=== PATIENT | female | born 1980 | race Caucasian/White ===

== ENCOUNTER 2016-04-24 07:44 | Inpatient (IN) | payer BC ==
[2016-04-24 08:52] LABS: Hematocrit 41 % (35-47); Mean Corpuscular HGB Conc 34 g/dl (31-36); Mean Corpuscular Hemoglobin 32 pg (27-31); Mean Corpuscular Volume 92 fL (80-97); Mean Platelet Volume 10 um3 (7.4-10.4); Red Blood Count 4.41 10^6/ul (4.0-5.4); Red Cell Distribution Width 13 % (10.5-15); White Blood Count 10.9 10^3/ul (3.5-10.8)
[2016-04-24] MEDS ORDERED: Oxytocin in LR* 20 UNITS/1,000 ML BAG IVPB SCH ×2 (09:00→18:00)
[2016-04-24] MEDS ORDERED: OBEPIDURAL* 250 ML ONE (13:38)
[2016-04-24] MEDS ORDERED: Phenylephrine IV* 40 MCG/ML 10 ML SYRINGE IV PUSH PRN ×2 (15:06)
[2016-04-24] MEDS ORDERED: Famotidine IV* 10 MG/ML 2 ML (20 mg) IV PRN (15:06)
[2016-04-24] MEDS ORDERED: Sodium Citrate/Citric Acid* 15 ML UDC PO PRN (15:06)
[2016-04-24] MEDS ORDERED: OBEPIDURAL* 250 ML EPIDURAL SCH (16:00)
[2016-04-24] MEDS ORDERED: Acetaminophen TAB* 325 MG PO PRN (17:28)
[2016-04-24] MEDS ORDERED: Glycerin ADULT SUPP PR PRN (17:28)
[2016-04-24] MEDS ORDERED: Witch Hazel PAD* JAR TOPICAL PRN (17:28)
[2016-04-24] MEDS ORDERED: Dibucaine 1% 28.35 GM TUBE PR PRN (17:28)
[2016-04-24] MEDS ORDERED: Simethicone TAB* 80 MG TAB.CHEW PO SCH (17:30)
[2016-04-24] MEDS: Ibuprofen TAB* 600 MG PO PRN (18:44)
[2016-04-24] MEDS: Docusate CAP* 100 MG PO SCH (22:25)
[2016-04-24] MEDS ORDERED: Phenylephrine IV* 40 MCG/ML 10 ML SYRINGE ONE (23:45)
[2016-04-25] MEDS: Ibuprofen TAB* 600 MG PO PRN ×4 (03:56→22:08)
[2016-04-25 07:38] LABS: Hematocrit 36 % (35-47); Hemoglobin 12.4 g/dl (12.0-16.0); Mean Corpuscular HGB Conc 34 g/dl (31-36); Mean Corpuscular Hemoglobin 32 pg (27-31); Mean Corpuscular Volume 93 fL (80-97); Mean Platelet Volume 10 um3 (7.4-10.4); Red Blood Count 3.89 10^6/ul (4.0-5.4); Red Cell Distribution Width 13 % (10.5-15); White Blood Count 10.9 10^3/ul (3.5-10.8)
[2016-04-25] MEDS ORDERED: Ferrous Gluconate TAB* 324 MG TAB PO SCH (09:00)
[2016-04-25] MEDS: Docusate CAP* 100 MG PO SCH ×3 (10:05→22:08)
[2016-04-26] MEDS: Ibuprofen TAB* 600 MG PO PRN ×2 (04:13→10:48)
[2016-04-26 07:42] VITALS: BP 114/65
[2016-04-26] MEDS: Docusate CAP* 100 MG PO SCH (08:46)
== END 2016-04-26 12:48 | disposition home or self-care (01) | DRG 560 ==
LOC: MCHOBOUT 07:44 → MCHOB 08:10
PROVIDERS: ADMIT Obstetrics & Gynecology; ATTEND Obstetrics & Gynecology
PROC: 10E0XZZ Delivery of Products of Conception, External Approach (ICD-10-PCS; principal; 2016-04-24)
PROC: 10907ZC Drainage of Amniotic Fluid, Therapeutic from Products of Conception, Via Natural or Artificial Opening (ICD-10-PCS; 2016-04-24)
DX: O80 Encounter for full-term uncomplicated delivery (principal); Z37.0 Single live birth; Z3A.39 39 weeks gestation of pregnancy
CPT/HCPCS: 36415; 85025; 86850; 86900; 86901; A9270-GY

== ENCOUNTER 2017-09-27 07:34 | Inpatient (IN) | payer OTHER ==
[2017-09-27] MEDS ORDERED: Oxytocin in LR* 20 UNITS/1,000 ML BAG IVPB SCH ×2 (08:00→17:00)
[2017-09-27] MEDS ORDERED: Buffered Lidocaine 0.9% SYRIN* 5 ML/SYR SYRINGE ONE (08:20)
[2017-09-27] MEDS ORDERED: Penicillin G Potassium IV* 5,000,000 UNITS in NS 0.9% 100 ML* 100 ML IVPB ONE (08:30)
[2017-09-27 09:00] LABS: ABS Basophils 0.1 10^3/ul (0-0.2); ABS Eosinophils 0.3 10^3/ul (0-0.6); ABS Lymphocytes 1.4 10^3/ul (1.0-4.8); ABS Monocytes 0.6 10^3/ul (0-0.8); ABS Neutrophils 8.2 10^3/ul (1.5-7.7); ABS Nucleated RBC 0 10^3/ul; Hematocrit 38 % (35-47); Hemoglobin 13.5 g/dl (12.0-16.0); Lymphocyte % 13.4 % (25-47); Mean Corpuscular HGB Conc 35 g/dl (31-36); Mean Corpuscular Hemoglobin 33 pg (27-31); Mean Corpuscular Volume 92 fL (80-97); Mean Platelet Volume 9.7 um3 (7.4-10.4); Nucleated Red Blood Cells % 0.2; Platelet Count 164 10^3/ul (150-450); Red Blood Count 4.15 10^6/ul (4.00-5.40); Red Cell Distribution Width 13 % (10.5-15); White Blood Count 10.6 10^3/ul (3.5-10.8)
[2017-09-27] MEDS ORDERED: EPHEDrine (Pressors)* 50 MG/ML VIAL IV PUSH PRN ×2 (11:26)
[2017-09-27] MEDS ORDERED: Phenylephrine IV* 40 MCG/ML 10 ML SYRINGE IV PUSH PRN ×2 (11:26)
[2017-09-27] MEDS ORDERED: Famotidine TAB* 20 MG PO PRN (11:26)
[2017-09-27] MEDS ORDERED: Sodium Citrate/Citric Acid* 15 ML UDC PO PRN (11:26)
--- NOTE | 2017-09-27 11:29 | HP ---
General Information - General Information Maternal Age: 36 Grav: 7 Para: 6 SAB: 0 IEA: 0 Estimated Due Date: 10/03/17 Determined By: LMP Gestational Age in Weeks and Days: 39 Weeks and 1 Days Maternal Blood Type and Rh: A Positive - Results this Serology/RPR Result: Non-Reactive Rubella Result: Immune HBsAg Result: Negative HIV Result: Negative GBS Culture Result: Positive Review of Systems CV Complaint: No Respiratory: Shortness of Breath: No Gastrointestinal: No Nausea/Vomiting Genitourinary: No Leaking Fluid Musculoskeletal: No Complaint Neurological: No Headache Movement: Normal Exam Allergies/Adverse Reactions: Allergies No Known Allergies Allergy (Verified 10/06/13 18:54) Lab Values - Entire Visit: Laboratory Tests 09/27/17 09/27/17 08:43 08:43 WBC 10.6 RBC 4.15 Hgb 13.5 Hct 38 MCV 92 MCH 33 H MCHC 35 RDW 13 Plt Count 164 MPV 9.7 Neut % (Auto) 77.0 Lymph % (Auto) 13.4 L [place] % (Auto) 5.6 Eos % (Auto) 3.0 Baso % (Auto) 1.0 Absolute Neuts (auto) 8.2 H Absolute Lymphs (auto) 1.4 Absolute Monos (auto) 0.6 Absolute Eos (auto) 0.3 Absolute Basos (auto) 0.1 Absolute Nucleated RBC 0 Nucleated RBC % 0.2 Blood Type A Positive Antibody Screen Negative - Measurements Height: 5 ft 3 in Weight: 178 lb Weight in lbs: 178.765937 Body Mass Index (BMI): 31.5 Pre- Weight: 156 lb Weight Gained This : 22 lbs and 0 ozs - Abdominal Exam Abdomen Exam: Non-Tender - Ultrasound/Biophysical Profile Ultrasound Status: Not Done Targeted Exam Findings Cervical Exam: 2cm Effacement: 50% Station: -1 Presenting Part: Vertex Membrane Status: Intact EFM Findings - External Monitor Findings External Monitor Findings: Accelerations Present, Variability Moderate Contractions: None
[2017-09-27] MEDS ORDERED: OBEPIDURAL* 250 ML EPIDURAL ONE (11:30)
[2017-09-27] MEDS ORDERED: OBEPIDURAL* 250 ML EPIDURAL SCH (12:00)
[2017-09-27] MEDS ORDERED: Penicillin G Potassium IV* 2,500,000 UNITS in NS 0.9% 100 ML* 100 ML IVPB SCH (13:30)
[2017-09-27] MEDS ORDERED: Witch Hazel PAD* JAR TOPICAL PRN (16:29)
[2017-09-27] MEDS ORDERED: Dibucaine 1% 28.35 GM TUBE PR PRN (16:29)
[2017-09-27] MEDS ORDERED: Glycerin ADULT SUPP PR PRN (16:29)
[2017-09-27] MEDS ORDERED: Simethicone TAB* 80 MG TAB.CHEW PO SCH (17:30)
[2017-09-27] MEDS: Ibuprofen TAB* 600 MG PO PRN (18:38)
[2017-09-28] MEDS: Ibuprofen TAB* 600 MG PO PRN ×4 (00:49→18:50)
[2017-09-28 07:00] LABS: ABS Basophils 0.1 10^3/ul (0-0.2); ABS Eosinophils 0.4 10^3/ul (0-0.6); ABS Lymphocytes 1.6 10^3/ul (1.0-4.8); ABS Monocytes 0.6 10^3/ul (0-0.8); ABS Neutrophils 9.2 10^3/ul (1.5-7.7); ABS Nucleated RBC 0 10^3/ul; Eosinophil % 3.4 % (0-6); Hematocrit 37 % (35-47); Hemoglobin 12.9 g/dl (12.0-16.0); Lymphocyte % 13.4 % (25-47); Mean Corpuscular HGB Conc 35 g/dl (31-36); Mean Corpuscular Hemoglobin 32 pg (27-31); Mean Corpuscular Volume 92 fL (80-97); Mean Platelet Volume 9.7 um3 (7.4-10.4); Nucleated Red Blood Cells % 0; Platelet Count 153 10^3/ul (150-450); Red Cell Distribution Width 13 % (10.5-15); White Blood Count 11.8 10^3/ul (3.5-10.8)
[2017-09-28] MEDS: Docusate CAP* 100 MG PO SCH ×4 (08:31→20:20)
[2017-09-28] MEDS: Prenatal Vitamin TAB PO SCH (08:32)
[2017-09-28] MEDS ORDERED: Ferrous Gluconate TAB* 324 MG TAB PO SCH (09:00)
[2017-09-28] MEDS: Acetaminophen TAB* 325 MG PO PRN (20:21)
[2017-09-29] MEDS: Ibuprofen TAB* 600 MG PO PRN ×2 (00:57→08:15)
[2017-09-29] MEDS: Acetaminophen TAB* 325 MG PO PRN (03:01)
[2017-09-29] MEDS: Docusate CAP* 100 MG PO SCH (08:15)
[2017-09-29] MEDS: Prenatal Vitamin TAB PO SCH (08:15)
[2017-09-29 09:01] VITALS: BP 108/78
== END 2017-09-29 12:30 | disposition home or self-care (01) | DRG 560 ==
LOC: MCHOBOUT 07:34 → MCHOB 07:58
PROVIDERS: ADMIT Obstetrics & Gynecology; ATTEND Obstetrics & Gynecology
PROC: 3E033VJ Introduction of Other Hormone into Peripheral Vein, Percutaneous Approach (ICD-10-PCS; principal; 2017-09-27)
PROC: 10907ZC Drainage of Amniotic Fluid, Therapeutic from Products of Conception, Via Natural or Artificial Opening (ICD-10-PCS; 2017-09-27)
PROC: 10E0XZZ Delivery of Products of Conception, External Approach (ICD-10-PCS; 2017-09-27)
PROC: 4A1HXCZ Monitoring of Products of Conception, Cardiac Rate, External Approach (ICD-10-PCS; 2017-09-27)
DX: O99.824 Streptococcus B carrier state complicating childbirth (principal); Z3A.39 39 weeks gestation of pregnancy; Z37.0 Single live birth
CPT/HCPCS: 36415; 85025; 86850; 86900; 86901; A9270-GY; J2540

== ENCOUNTER 2017-12-16 06:22 | Day surgery (SDC) | payer OTHER ==
[~2017-12-16 06:22] MED LIST: Buffered Lidocaine 0.9% SYRIN* 5 ML/SYR SYRINGE INTRADERM ONE
[2017-12-16] MEDS ORDERED: ceFAZolin 2 GM in NS PREMIX(*) 2 GM/100 ML BAG IVPB ONE (06:24)
[2017-12-16] MEDS ORDERED: Bupivacaine 0.5% SDV PF* 30ML VIAL ONE ×2 (07:15→08:12)
[2017-12-16] MEDS ORDERED: fentaNYL* 50 MCG/ML 2 ML VIAL (100 MCG VIAL) ONE ×2 (07:30→08:11)
[2017-12-16] MEDS ORDERED: Midazolam* 1 MG/ML 5 ML VIAL (5 MG) ONE (07:30)
[2017-12-16] MEDS ORDERED: Propofol* 10 MG/ML 20 ML BTL IV PUSH ONE ×2 (07:38→08:12)
[2017-12-16] MEDS ORDERED: Naloxone* 0.4 MG/ML 1 ML VIAL IV PRN (08:02)
--- NOTE | 2017-12-16 09:33 | OP ---
Operative Report - Blank - Operative Report Date of Operation: 12/16/17 Note: PATIENT: Marjorie Fox DATE OF : 1980 DATE OF SURGERY: 12/16/2017 SURGEON: Franco Guzman MD BIOINFORMATICS DEVELOPER: SUPA Nam, whos assistance was necessary for positioning, retraction, help with instrumentation, and closure. ANESTHESIOLOGIST: Dr. Oviedo PREOPERATIVE DIAGNOSIS: Right foot hallux valgus deformity POSTOPERATIVE DIAGNOSIS: Right foot hallux valgus deformity OPERATION: Right foot hallux valgus correction with distal soft tissue procedure , medial eminence resection, and proximal suture button fixation. ANESTHESIA: Mac IMPLANTS: Arthrex mini tightrope TOURNIQUET TIME: One hour with an ankle Esmarch tourniquet SPECIMENS: None ESTIMATED BLOOD LOSS: Minimal COMPLICATIONS: none STATUS: Stable from the operating room to the recovery room and then home. INDICATIONS FOR PROCEDURE: Marjorie has had a painful right bunion refractory to non-operative treatment. Both operative and non-operative treatment alternatives were reviewed. Further , the nature and risks of surgery were reviewed in careful detail, in the office as well as the pre-operative holding area. Our discussions regarding the risks of surgery included, but were not limited to, infection, wound problems, nerve injury, neuroma, RSD, persistent symptoms, blood clot, recurrence of the hallux valgus deformity, hallux varus deformity, imperfect reduction, metatarsal fracture, need for further surgery, failure of the surgery, and even the remote chance of catastrophic complication, including loss of limb. DESCRIPTION OF PROCEDURE: The patient was seen in the preoperative holding unit and informed written consent was obtained. The appropriate extremity was marked. The patient was then brought to the operating room and carefully positioned on the operating room table. Anesthesia was induced. All bony prominences were padded with great care. A chlorhexidine based pre-scrub was performed followed by a chloraprep prep and drape in standard sterile fashion. A surgical safety pause was then conducted in which we confirmed the appropriate patient, extremity, planned procedure, availability of equipment, indication and administration of prophylactic antibiotics, and DVT prophylaxis in the form of a compression boot on the non-surgical extremity. I began with Esmarch exsanguination of the limb and placement of the ankle Esmarch tourniquet. An approximately 3cm longitudinal dorsal incision was made in the first webspace. Blunt dissection was utilized to expose the structures of the lateral first MTP joint. With a scalpel I then sharply released the adductor tendon, intermetatarsal ligament, metatarsal-sesamoid ligament, and lateral joint capsule. After this, the hallux came readily over into varus with minimal pressure. I then made an approximately 3cm longitudinal incision over the medial aspect of the first MTP joint, centered at the first MTP joint. Dissection was carried down to the capsular layer. The dorsomedial cutaneous nerve was protected throughout. The capsule was opened in line with the skin incision. I then used an oscillating saw to perform an exostectomy of the medial eminence of the first MTP head flush with the metaphyseal flare proximally. I started the osteotomy 1mm medial to the sagittal sulcus. The dorsomedial prominence was then contoured with a rongeur. I then simulated an imbrication of the capsule, which provided excellent visual correction of the hallux valgus deformity and intermetatarsal angle. I used fluoroscopy to confirm this and that the sesamoids were appropriately positioned under the first metatarsal head. As such, I then formally imbricated and repaired the medial first MTP joint capsule utilizing several advancing horizontal mattress sutures with #1 Vicryl. I then made an approximately 1 cm incision at the lateral border of the second metatarsal. The lateral cortex of the second metatarsal was exposed. The 1.1mm guidewire from the Arthrex mini tightrope set was passed from the lateral second metatarsal, through the second metatarsal, and through the first metatarsal to exit medially. I felt four cortices while advancing the guidewire. Then, by pulling the guidewire out medially, I shuttled a passing suture through the second and first metatarsals. I then looped the suture of the Arthrex mini tightrope through the passing suture and pulled this out laterally through the second metatarsal. This acted to shuttle the mini tightrope through the first and second metatarsals. The buttons were placed flush on the medial aspect of the first metatarsal and lateral aspect of the second metatarsal, and the suture was tied over the button laterally at the second metatarsal. Fluoroscopy was used to confirm that this maintained my intermetatarsal correction. Final fluoroscopic images were then obtained. The wounds were copiously irrigated and meticulously closed in layers utilizing 3-0 Monocryl. A sterile dressing was then applied, along with a bunion bolster. The patient was then awakened from anesthesia and transferred to the recovery room in stable condition. There were no complications. All needle and sponge counts were correct at the end of the case. ATTESTATION: I attest I was present and scrubbed and performed the critical portions of the procedure myself. POSTOPERATIVE PLAN: The patient will remain heel weightbearing in a postop shoe for anticipated duration of 6 weeks. Followup will be in 2 weeks for likely suture removal, Steri-Strip application, and reapplication of the bunion bolster.
[2017-12-16 09:52] VITALS: BP 108/76
[2017-12-16] MEDS ORDERED: Ondansetron INJ* 2 MG/ML VIAL ONE (10:00)
== END 2017-12-16 10:38 | disposition home or self-care (01) ==
LOC: OR 06:22
PROVIDERS: ATTEND Orthopaedic Surgery
DX: M20.11 Hallux valgus (acquired), right foot (principal); K21.9 Gastro-esophageal reflux disease without esophagitis
CPT/HCPCS: 81025; C1713; J0690; J2250; J2405; J2704; J3010